=== PATIENT | female | born 1995 | race African-American/Black ===

== ENCOUNTER 2024-04-09 14:46 | Emergency (ER) | payer BC ==
[2024-04-09 17:05] LABS: Clarity Clear (Clear); Glucose, Urine (Dipstick) Normal (Negative); Ketone, Urine Negative (Negative); Leukocyte 500 (Negative); Nitrite Negative (Negative); Protein, Urine (Dipstick) Negative (Neg-Trace); Specific Gravity, Urine 1.015 (1.005-1.030); pH, Urine 6.5 (5.0-9.0)
[2024-04-09 17:06] LABS: Bilirubin Negative (Negative); Blood, Urine Negative (Negative); Urobilinogen Normal mg/dL (Less than 2)
[2024-04-09 17:08] LABS: Bacteria/HPF 1+ HPF (None Seen); CAUTI Indications for Culture Pelvic or flank pain; RBC/HPF 0-3 HPF (0-3)
[2024-04-09 17:09] LABS: Urine Culture Reflex No No
== END 2024-04-09 17:18 | disposition home or self-care (01) ==
LOC: CSHERS 14:46
DX: O23.591 Infection of other part of genital tract in pregnancy, first trimester (principal); O24.111 Pre-existing type 2 diabetes mellitus, in pregnancy, first trimester; O16.1 Unspecified maternal hypertension, first trimester; Z3A.01 Less than 8 weeks gestation of pregnancy
CPT/HCPCS: 87077; 87086; 87480; 87510; 87660; 99283

== ENCOUNTER 2024-04-18 20:28 | Emergency (ER) | payer BC ==
[2024-04-18 21:17] LABS: #Basophils 0.05 10x3/uL (0.0-0.2); #Eosinphils 0.17 10x3/uL (0.0-0.5); #Monocytes 0.52 10x3/uL (0.0-1.1); #Neutrophils 2.66 10x3/uL (1.5-8.4); %Basophils 0.8 % (0.0-2.0); %Eosinophils 2.7 % (0.0-6.0); %Lymphocytes 45.6 % (18.0-47.0); %Monocytes 8.3 % (0.0-10.0); %Neutrophils 42.1 % (40.0-75.0); Hematocrit 36.1 % (34.9-44.5); Hemoglobin 12.3 g/dL (12.0-15.5); Mean Corpuscular HGB CONC 34.1 g/dL (32.0-36.0); Mean Corpuscular Hemoglobin 27.3 pg (27.0-33.0); Mean Platelet Volume 9.2 fL (7.4-10.4); Platelet Count 356 10x3/uL (150-450); Red Blood Cell (RBC) Count 4.51 10x6/uL (3.90-5.03); White Blood Cell (WBC) Count 6.3 10x3/uL (3.5-10.5)
== END 2024-04-18 23:25 | disposition home or self-care (01) ==
LOC: CSHERS 20:28
DX: O20.0 Threatened abortion (principal); O99.281 Endocrine, nutritional and metabolic diseases complicating pregnancy, first trimester; E03.9 Hypothyroidism, unspecified; O24.911 Unspecified diabetes mellitus in pregnancy, first trimester; Z79.84 Long term (current) use of oral hypoglycemic drugs; Z79.4 Long term (current) use of insulin; Z3A.08 8 weeks gestation of pregnancy
CPT/HCPCS: 36415; 76856; 84702; 85025; 86900; 86901

== ENCOUNTER 2024-09-25 12:59 | Emergency (ER) | payer BC, MEDICAID, OTHER | END 2024-09-25 14:15 | disposition home or self-care (01) | LOC: CSHERS 12:59 | DX: O20.9 Hemorrhage in early pregnancy, unspecified (principal); O24.111 Pre-existing type 2 diabetes mellitus, in pregnancy, first trimester; O10.911 Unspecified pre-existing hypertension complicating pregnancy, first trimester; Z3A.01 Less than 8 weeks gestation of pregnancy | CPT/HCPCS: 36415; 84702; 99284 ==

== ENCOUNTER 2025-07-21 07:31 | Emergency (ER) | payer OTHER ==
[2025-07-21] MEDS ORDERED: Acetaminophen 500 MG TAB ONE (07:57)
== END 2025-07-21 08:55 | disposition home or self-care (01) ==
LOC: CSHERS 07:31
DX: B34.9 Viral infection, unspecified (principal); R51.9 Headache, unspecified; E11.9 Type 2 diabetes mellitus without complications; I10 Essential (primary) hypertension
CPT/HCPCS: 87428; 99283